=== PATIENT | female | born 1970 | race Caucasian/White ===

== ENCOUNTER → 2017-06-07 | Outpatient (CLI) | payer OTHER ==
[~2017-06-07] MED LIST: DICL100G39 TOP
--- NOTE | 2017-06-07 12:43 | RADIOLOGY IMAGING REPORT ---
FACILITY: [facility] - [place] PATIENT NAME: Lori Padilla : 1970 MR: [id number] V: [id number] EXAM DATE: ORDERING PHYSICIAN: JOE GORE TECHNOLOGIST: Location: [facility] [place] Patient: Lori Padilla : 1970 Visit/Account:[id number] Date of Sevice: 06/07/2017 Technique: ELBOW 3 VIEW LEFT HISTORY: Left elbow pain, fall 1 week ago Comparison studies: None FINDINGS: Present is an acute, nondisplaced fracture involving the radial head. This is best seen on the oblique view. The alignment of the left elbow is maintained. Present is a moderate elbow joint effusion. IMPRESSION: 1. Acute, nondisplaced radial head fracture. Report Dictated By: Jersey Smith DO at 06/07/2017 12:37 PM Report E-Signed By: Jersey Smith DO at 06/07/2017 12:39 PM WSN:[email or web address]
== END ==
LOC: RAD 11:40
PROVIDERS: ATTEND Nurse Practitioner Primary Care
DX: S52.124A Nondisplaced fracture of head of right radius, initial encounter for closed fracture (principal); W19.XXXA Unspecified fall, initial encounter

== ENCOUNTER → 2017-06-14 | Outpatient (CLI) | payer OTHER ==
[~2017-06-14] MED LIST changes: +CELE-1 PO; +CHOL500016 PO; +CYAN1000 IJ; +DIA5 PO; +HYDR-2966 PO; +LACT1CAP6 PO; +LEVO100T95 PO; +LEVO5TAB28 PO; +MELA10CA PO; +POTA99TA6 PO; +PROM-110 PO; +PROP120C31 PO; +SUMA100T32 PO; +TRAM-420 PO; +VALA500T63 PO; +ZOLP-350 PO
--- NOTE | 2017-06-14 13:59 | RADIOLOGY IMAGING REPORT ---
[place] [facility] [place]IENT NAME: Lori Padilla : 1970 MR: [id number] V: [id number] EXAM DATE: ORDERING PHYSICIAN: JOE GORE TECHNOLOGIST: Location: [facility] Patient: Lori Padilla : 1970 Visit/Account:[id number] Date of Sevice: 06/14/2017 Exam type: WRIST LEFT MIN 3 VIEW History: Fall left wrist pain, left forearm pain Comparison: None. Findings: Three views of the left wrist reveal no gross evidence of acute fracture-dislocation or significant a rthritic change. A navicular view was not performed. IMPRESSION: 1. No demonstration of acute fracture-dislocation involving the left wrist however navicular view wa s not performed and if a navicular fracture is of clinical concern a navicular view is recommended Report Dictated By: Raya Soto MD at 06/14/2017 1:52 PM Report E-Signed By: Raya Soto MD at 06/14/2017 1:54 PM WSN:[email or web address]
--- NOTE | 2017-06-14 13:59 | RADIOLOGY IMAGING REPORT ---
FAC[place] [facility] [place]IENT NAME: Lori Padilla : 1970 MR: [id number] V: [id number] EXAM DATE: ORDERING PHYSICIAN: JOE GORE TECHNOLOGIST: Location: [facility] Patient: Lori Padilla : 1970 Visit/Account:[id number] Date of Sevice: 06/14/2017 Exam type: FOREARM LEFT History: Fall with left forearm pain Comparison: Left elbow June 07, 2017. Findings: Two views the left forearm redemonstrate the mildly impacted fracture through the right radial head w ith an associated joint effusion at the left elbow. There does appear to be slightly less soft tissu e swelling. No other fracture of the left forearm is identified IMPRESSION: 1. Impacted fracture through the left radial head is reidentified when compared to the left elbow se orozco from June 07, 2017. There is an associated joint effusion at the left elbow although slightly les s soft tissue swelling is present Report Dictated By: Raya Soto MD at 06/14/2017 1:54 PM Report E-Signed By: Raya Soto MD at 06/14/2017 1:56 PM WSN:[email or web address]
== END ==
LOC: RAD 10:38
PROVIDERS: ATTEND Nurse Practitioner Primary Care
DX: S52.122A Displaced fracture of head of left radius, initial encounter for closed fracture (principal); M25.422 Effusion, left elbow

== ENCOUNTER → 2017-09-06 | Outpatient (CLI) | payer OTHER ==
[~2017-09-06] MED LIST changes: +CYAN1000 IM; +EREN70AU SUBQ
[2017-09-06 07:57] LABS: PLATELET COUNT, AUTOMATED 270 K/uL (150-450)
[2017-09-06 08:49] LABS: LDL CHOLESTEROL 80 mg/dl
== END ==
LOC: LAB 07:23
PROVIDERS: ATTEND Nurse Practitioner Family
DX: E03.9 Hypothyroidism, unspecified (principal); E53.8 Deficiency of other specified B group vitamins; I10 Essential (primary) hypertension; E55.9 Vitamin D deficiency, unspecified
CPT/HCPCS: 36415; 82040; 82247; 82306; 82310; 82374; 82435; 82465; 82565; 82607; 82746; 82947; 83718; 84075; 84132; 84155; 84295; 84443; 84450; 84460; 84478; 84520; 85025

== ENCOUNTER → 2017-09-20 | Outpatient (CLI) | payer OTHER ==
--- NOTE | 2017-09-20 13:26 | RADIOLOGY IMAGING REPORT ---
FACILITY: [facility] - [place] PATIENT NAME: Lori Padilla : 1970 MR: [id number] V: [id number] EXAM DATE: ORDERING PHYSICIAN: CLAY WILSON TECHNOLOGIST: Location: [facility] Patient: Lori Padilla : 1970 Visit/Account:[id number] Date of Sevice: 09/20/2017 Left elbow, three views. HISTORY: Left elbow pain. COMPARISON: 06/07/2017. Alignment and apposition of radial head fracture fragments are unchanged. The fracture line is less distinct. Slight sclerosis is present along the fracture line. Minimal callus is present along the radial neck. The bones and joints are otherwise unremarkable. No joint effusion. IMPRESSION: Healing radial head fracture. Report Dictated By: Edgar Valentine MD at 09/20/2017 1:19 PM Report E-Signed By: Edgar Valentine MD at 09/20/2017 1:21 PM WSN:[email or web address]
== END ==
LOC: RAD 11:58
PROVIDERS: ATTEND Nurse Practitioner Family
DX: S52.124D Nondisplaced fracture of head of right radius, subsequent encounter for closed fracture with routine healing (principal)

== ENCOUNTER → 2017-10-05 | Outpatient (CLI) | payer OTHER ==
--- NOTE | 2017-10-05 15:24 | RADIOLOGY IMAGING REPORT ---
FACILITY: [facility] PATIENT NAME: LORI RYAN : [id number] MR: [id number] V: [id number] EXAM DATE: [id number] ORDERING PHYSICIAN: CLAY WILSON TECHNOLOGIST: Lori Lema PROCEDURE:BILATERAL DIGITAL SCREENING MAMMOGRAM WITH CAD ASSISTED INTERPRETATION & 3D TOMOSYNTHESIS COMPARISON:None. INDICATIONS:SCREENING FINDINGS: Breast tissue is heterogeneously dense. There is no suspicious mass, calcification, or architectural distortion. DIAGNOSTIC CATEGORY 1--NEGATIVE. RECOMMENDATIONS: ROUTINE MAMMOGRAM AND CLINICAL EVALUATION. IMPRESSION: BIRADS 1: Negative. No mammographic evidence for malignancy. Dictated by: Tej Mckeon M.D. on 10/05/2017 at 12:11 Transcribed by: ALMAZ on 10/05/2017 at 13:30 Approved by: Tej Mckeon M.D. on 10/05/2017 at 15:22 [facility]
== END ==
LOC: MAMO 01:11
PROVIDERS: ATTEND Nurse Practitioner Family
DX: Z12.31 Encounter for screening mammogram for malignant neoplasm of breast (principal)
CPT/HCPCS: 77063; 77067

== ENCOUNTER → 2018-03-31 | Outpatient (CLI) | payer OTHER ==
[~2018-03-31] MED LIST changes: +AMOX-559 PO; +EREN70AU2 SUBQ; +LEVO100T11 PO; +PRED20TA6 PO; +SUMA6CAR2 SQ
== END ==
LOC: AUD 14:00
PROVIDERS: ATTEND Otolaryngology
DX: H92.01 Otalgia, right ear (principal)
CPT/HCPCS: 92567

== ENCOUNTER 2018-06-16 02:08 | Day surgery (SDC) | payer OTHER ==
[~2018-06-16] VITALS: Ht 165.1 cm; Wt 74.8 kg
[~2018-06-16 02:08] MED LIST changes: +BUTA1CAP51 PO; +MAGN84TA5 PO
[2018-06-16] MEDS ORDERED: LIDO/EPI 1% MDV 1:100,000 20ML INFIL ONE (10:15)
[2018-06-16] MEDS ORDERED: OXYMETAZOLINE SPRAY 15 ML BTL ONE (10:15)
[2018-06-16] MEDS ORDERED: BACITRACIN OINT 15 GM TUBE TP ONE (10:15)
[2018-06-16] MEDS ORDERED: CIPROFLOXACIN /DEX OP 7.5 ML BTL ONE (10:15)
[2018-06-16] MEDS ORDERED: NS(*) 0.9% 250 ML BAG 250 ML ONE (10:15)
[2018-06-16] MEDS ORDERED: ceFAZolin(*) 2GM/D5W 50ML 50 ML IVPB ONE (10:45)
[2018-06-16 10:49] VITALS: BP 136/89
[2018-06-16] MEDS ORDERED: FAMOTIDINE 20 MG TAB PO ONE (11:00)
[2018-06-16] MEDS ORDERED: MIDAZOLAM 2 MG/2 ML VIAL IVP PRN (11:00)
[2018-06-16] MEDS ORDERED: LIDOCAINE/SOD BICARB 8.4% SYR ID ONE (11:00)
[2018-06-16] MEDS ORDERED: NORMOSOL R SOLN(*) 1000 ML BAG 1,000 ML IV PRN (11:00)
[2018-06-16] MEDS ORDERED: PROMETHAZINE 25 MG/ML 1 ML AMP ONE (12:30)
[2018-06-16] MEDS ORDERED: fentaNYL CITR 100 MCG/2 ML AMP ONE (13:01)
--- NOTE | 2018-06-16 13:01 | OPERATIVE REPORT 1 ---
EVENT DATE: June 16, 2018 SURGEON: Kobe Freedman MD ANESTHESIOLOGIST: Shawn Frank MD ANESTHESIA: LMA. PREOPERATIVE DIAGNOSES 1. Bilateral eustachian tube dysfunction. 2. Nasoseptal deviation. 3. Bilateral inferior turbinate hypertrophy. POSTOPERATIVE DIAGNOSIS 1. Bilateral eustachian tube dysfunction. 2. Nasoseptal deviation. 3. Bilateral inferior turbinate hypertrophy. PROCEDURE PERFORMED 1. Bilateral myringotomies and insertion of tympanostomy tubes. 2. Septoplasty. 3. Submucous resection of bilateral inferior turbinates. INDICATIONS Please refer to preoperative note. DESCRIPTION OF PROCEDURE The patient was positively identified in the preoperative area. She was accompanied there by her . Risks were again explained, including but not limited to, tympanic membrane perforation, bleeding, infection, nasoseptal deviation and those associated with anesthesia. She acknowledged understanding those risks. She was then brought back to the operative suite, laid supine on the operative table and anesthesia was administered. Once asleep, the patient was positioned and prepped and draped in usual sterile fashion. I began with insertion of the tympanostomy tubes. The microscope was brought into place. Speculum was placed in the left external auditory canal. Cerumen was removed. Tympanic membrane was visualized. Myringotomy was made in the anterior inferior quadrant. An Gaitan Grommet tube was then carefully placed and myringotomy positioned into place. Ciprodex drops were instilled. I then proceeded with the contralateral ear in a similar fashion. Speculum was placed. Cerumen was removed. The tympanic membrane was visualized. Myringotomy was made in the anterior inferior quadrant. Gaitan Grommet tube was then carefully placed in the myringotomy and positioned in place. Ciprodex drops were instilled. The patient was then repositioned for the nasal part of the case. I initially decongested the nose by injecting approximately 10 cc of 1% lidocaine epinephrine to the bilateral anterior nasoseptal mucosa and along the face of the bilateral inferior turbinates. Both nasal cavities were subsequently packed with cottonoids containing Afrin solution. These were subsequently removed and nasal endoscopy was performed. This was notable for severe rightward nasoseptal deviation. A Remy incision was made at the anterior aspect of the left nasoseptal mucosa. A subperichondrial flap was elevated. Incision was made into the anterior nasoseptal cartilage approximately 5 mm posterior to the original [place] incision. A contralateral flap was raised. The deviated portion of the patient's nasoseptal cartilage and bone was then removed. The Remy incision was then reapproximated with interrupted Chromic stitch. I then addressed the inferior turbinate. A stab incision was made at the face of the left inferior turbinate. A Auguste elevator was utilized to elevate the mucosa off the underlying bone. A submucous resection was then performed with the turbinate blade of the microdebrider. The stab excision was then cauterized with suction Bovie electrocautery. The contralateral inferior turbinate was addressed in a similar fashion. Bilateral nasoseptal splints were then placed and secured to the columellar suture. The patient was then turned to Anesthesia for emergence. ESTIMATED BLOOD LOSS 25 cc.. COMPLICATIONS No complications. . MTDD
[2018-06-16] MEDS ORDERED: LABETALOL HCL 25 MG/5 ML SYRINGE ONE (13:22)
[2018-06-16] MEDS ORDERED: HYDR-653 PO (13:24)
[2018-06-16] MEDS ORDERED: CEFU500T10 PO (13:25)
[2018-06-16] MEDS ORDERED: ONDA4TAB9 PO (13:26)
[2018-06-16 13:50] VITALS: BP 138/89
[2018-06-16 14:15] VITALS: BP 123/86
[2018-06-16] MEDS ORDERED: ONDANSETRON 4 MG/2 ML VIAL ONE (14:20)
[2018-06-16] MEDS ORDERED: APAP/HYDROCODONE 325/5 TAB ONE (14:21)
[2018-06-16 14:45] VITALS: BP 115/83
[2018-06-16 14:54] VITALS: BP 119/80
[2018-06-16 14:56] VITALS: BP 125/80
--- NOTE | 2018-06-16 16:50 | NUR ---
1350- PT. TRANSITIONED TO PHASE 2 AND STAYED IN THE PACU IN MY CARE. SEE ADMISSION ASSESSMENT. 1400- PT. S.O. BROUGHT TO THE BEDSIDE. 1408- PT. O2 DROPPED TO 84% WHILE SLEEPING SO PLACED ON 1LPM OXY MASK. 1412- PT. GIVEN PUDDING AND RETURNED TO ROOM AIR. 1422- PT. GIVEN ZOFRAN IV PROFOACTIVLY BEFORE GIVEING PAIN PILL. 1435- PT. GIVEN LORTAB. 1450- WENT OVER DISCHARGE INSTRUCTIONS WITH PT. AND S.O. 1454- PT STATES THAT SHE IS READY TO GO HOME SO ORTHOSTATICS PREFORMED. 1458- PT. GETTING DRESSED. 1500- IV TAKEN OUT AND PRESSURE DRESSING APPLIED. 1505- PT. TO THE BATHROOM. 1510- ACCOMPANIED PT. OUT TO VEHICLE VIA WHEELCHAIR. SEE DISCHARGE ASSESSMENT.
== END 2018-06-16 13:50 | disposition home or self-care (01) ==
LOC: OR 02:08
PROVIDERS: ATTEND Otolaryngology
DX: J34.3 Hypertrophy of nasal turbinates (principal)
CPT/HCPCS: 30140; 30520; 69436; J2250; J2405; J2550; J3010; J7050; J0690

== ENCOUNTER → 2018-06-29 | Outpatient (REF) ==
[~2018-06-29] MED LIST changes: +CEFU500T10 PO; +HYDR-653 PO; +ONDA4TAB9 PO
[2018-06-29 08:21] LABS: LDL CHOLESTEROL 87 mg/dl
== END ==
DX: Z02.9 Encounter for administrative examinations, unspecified (principal)

== ENCOUNTER → 2018-07-13 | Outpatient (CLI) | payer OTHER | LOC: LAB 07:29 | PROVIDERS: ATTEND Nurse Practitioner Family | DX: R73.01 Impaired fasting glucose (principal) | CPT/HCPCS: 36415; 83036 ==